=== PATIENT | male | born 2000 | race Two or more races ===

== ENCOUNTER → 2024-08-10 | Outpatient (CLI) | payer MEDICAID ==
[~2024-08-10] VITALS: Ht 167.6 cm; Wt 90.7 kg
[2024-08-10] MEDS: REGADENOSON 0.4 MG/5 ML SYRG IV ONE ×2 (09:51)
--- NOTE | 2024-08-10 15:39 | DVHSR ---
APPROVED REPORT Exam: Nuclear Stress Test Indication: Chest pain,HTN, HLD Stress Tech: Zari Hardwick Ht: 5 ft 6 in Wt: 200 lbs BSA: 2.00 m2 BMI: 32.27 Medical History Medical History: SZ DISORDER (NO SEISURE ACTIVITY FOR 5 YEARS AND NO MEDICATIONS) Allergies: No known drug allergies Stress Test Details Stress Test: Pharmacologic stress testing performed using 0.4 mg of regadenoson per 5 mL given IV ov er 10 seconds. Reason for pharmacologic stress test: CP, HTN, HLD. HR Resting HR: 80 bpmMax Heart Rate (APMHR): 196.279599 bpm Max HR Achieved: 123 bpmTarget HR (85% APMHR): 166.688642 bpm % of APMHR: 62.76 Recovery HR: 79 bpm BP Resting BP: 119/65 mmHg Recovery BP: 117/57 mmHg ECG Resting ECG: Sinus Rhythm Clinical Reason for Termination: Completed protocol Nurse Comments Received patient from Nuclear Medicine. Patient is A&O x4 and on RA. FOR VS please refer back to st ress test assessment documentation. Patient is connected to child monitor. See cardio-neuro proce dural notes for addtional details. PIV flushes well. Reviewed POC and patient verbalizes understand ing and consents to test. Lexiscan stress test performed per protocol. design technician administered the Cardiolite. Pat ient tolerated well and vitals returned to baseline. Transferred to Nuclear Medicine via wheelchair with tech in stable condition. Stress ECG Conclusion Resting ECG showed normal sinus rhythm. At peak stress level no dynamic EKG changes was noted to sug gest ischemia. Resting images shows near homogeneous uptake of radioactive tracer throughout the myocardium without evidence of myocardial infarction. Stress images shows near homogeneous of radioactive tracer throughout the myocardium with a mild redu vinod uptake in the anterior inferoseptal wall likely due to attenuation artifact. Well-preserved left ventricular systolic function estimated ejection 62%. Impression: Negative stress test for ischemia, low risk study NM EXAM: Myocardial Perfusion REST/STRESS Imaging Protocol: Rest Tc-99m/Stress Tc-99m 1 day Resting Data Rest SPECT myocardial perfusion imaging was performed in supine position 60 minutes following the int ravenous injection of 12.5 mCi of Tc-99m Sestamibi. Time of rest injection: 0800 Time of rest imagin Administration Route: IV Administration Site: Left Arm Pharmacologic Stress Pharmacologic stress test was performed by injecting Regadenoson 0.4 mg IV push followed by the intra venous injection of 29.5 mCi of Tc-99m Sestamibi. Time of stress injection: 0950 Time of stress imagin Administration Route: IV Administration Site: Left Arm Gated Stress SPECT was performed 60 minutes after stress injection. The images were gated to evaluate regional wall motion and calculate left ventricular ejection fracti on. Stress only was performed in the Supine position. Nuclear Conclusion ECG Findings: negative for ischemia Clinical Findings: negative for ischemia Nuclear Findings: negative for ischemia Exercise Capacity: not assessed Left Ventricular Function: normal Risk Study: low Resting ECG showed normal sinus rhythm. At peak stress level no dynamic EKG changes was noted to sug gest ischemia. Resting images shows near homogeneous uptake of radioactive tracer throughout the myocardium without evidence of myocardial infarction. Stress images shows near homogeneous of radioactive tracer throughout the myocardium with a mild redu vinod uptake in the anterior inferoseptal wall likely due to attenuation artifact. Well-preserved left ventricular systolic function estimated ejection 62%. Impression: Negative stress test for ischemia, low risk study
== END | disposition home or self-care (01) ==
LOC: XYW 08:00
PROVIDERS: ATTEND Specialist
DX: I10 Essential (primary) hypertension (principal); R07.9 Chest pain, unspecified; E78.5 Hyperlipidemia, unspecified
CPT/HCPCS: 78452; A9500; J2785; 93017